=== PATIENT | female | born 1975 | race Caucasian/White ===

== ENCOUNTER 2020-06-25 11:41 | Emergency (ER) | payer OTHER ==
[~2020-06-25] VITALS: Ht 162.6 cm; Wt 77.6 kg
[2020-06-25] MEDS ORDERED: NEURONTIN100 MG PO (11:48)
[2020-06-25] MEDS ORDERED: NEXIUM2.5 MG PO (11:48)
[2020-06-25] MEDS ORDERED: PROZAC20 M1 PO (11:48)
[2020-06-25] MEDS ORDERED: CLONAZEPAM 0.50.5 M1 PO (11:49)
[2020-06-25 13:22] VITALS: BP 115/82
== END 2020-06-25 13:24 | disposition left against medical advice (07) ==
LOC: M.ERS 11:41
DX: Z53.21 Procedure and treatment not carried out due to patient leaving prior to being seen by health care provider (principal)